=== PATIENT | female | born 1990 | race Two or more races ===

== ENCOUNTER 2023-11-05 15:20 | Emergency (ER) | payer OTHER, MEDICAID ==
[~2023-11-05] VITALS: Ht 167.6 cm; Wt 205.0 kg
[~2023-11-05 15:20] MED LIST: FLUO20CA33 MT
[2023-11-05 15:26] VITALS: O2SAT 99
[2023-11-05 17:13] LABS: BASOPHILS % 0.7 % (0.0-2.0); HEMATOCRIT. 39.6 % (36.0-48.0); HEMOGLOBIN. 12.9 g/dL (12.0-16.0); LYMPHOCYTES % 21.7 % (20.0-50.0); MEAN CORPUSCULAR HEMOGLOBIN 27.1 pg (28.0-32.0); MEAN CORPUSCULAR HGB CONC 32.6 g/dL (31.0-37.0); MEAN PLATELET VOLUME 7.7 fl (7.4-10.4); MONOCYTES % 6.1 % (2.0-8.0); NEUTROPHILS % 68.5 % (40.0-76.0); PLATELET 338 x1000/uL (130-400); RED BLOOD CELL COUNT 4.76 mill/uL (4.2-5.4); RED CELL DISTRIBUTION WIDTH 14.3 % (11.6-14.6); WHITE BLOOD COUNT 7.8 x1000/uL (4.5-11.0)
[2023-11-05 17:14] LABS: CHLORIDE 103 mEq/L (98-107); POTASSIUM 4.1 mEq/L (3.5-5.1); SODIUM 137 mEq/L (136-145)
[2023-11-05 17:15] LABS: CARBON DIOXIDE 30 mEq/L (21-32)
[2023-11-05 17:16] LABS: CALCIUM 9.3 mg/dL (8.7-10.4)
[2023-11-05 17:20] LABS: CREATININE 0.6 mg/dL (0.6-1.0); GLUCOSE 134 mg/dL (70-105); UREA NITROGEN BLOOD 11 mg/dL (9-23)
[2023-11-05 17:21] LABS: TROPONIN I HIGH SENSITIVITY 4 ng/L (3.0-34)
[2023-11-05 18:38] VITALS: BP 130/70; PULSE 70; RESP 15; TEMP 98.2
== END 2023-11-05 18:38 | disposition home or self-care (01) ==
LOC: ER 15:20
DX: R07.89 Other chest pain (principal); R06.4 Hyperventilation; J45.909 Unspecified asthma, uncomplicated; F32.A Depression, unspecified
CPT/HCPCS: 36415; 71045; 80048; 84484; 85025; 85379; 93005; 99285